=== PATIENT | female | born 1985 | race Caucasian/White ===

== ENCOUNTER 2017-08-08 07:15 | Inpatient (IN) | payer OTHER, MEDICAID ==
[2017-08-08 08:19] LABS: ADD MAN DIFF? NO
[2017-08-08] MEDS ORDERED: METHYLERGONOVINE 0.2 MG INJ IM (08:30)
[2017-08-08] MEDS ORDERED: SENNA/DOCUSATE NA (8.6MG/50MG) TAB PO (08:30)
[2017-08-08] MEDS ORDERED: OXYTOCIN 30 UNITS/LR 500 ML IV (08:30)
[2017-08-08] MEDS ORDERED: MISOPROSTOL 200 MCG TAB PR (08:30)
[2017-08-08] MEDS ORDERED: CARBOPROST 250 MCG INJ IM (08:30)
[2017-08-08] MEDS: OXYTOCIN 30 UNITS/LR 500 ML IV ×3 (08:38→13:27)
[2017-08-08 08:39] LABS: WHITE BLOOD COUNT 12.3 10^3/ul (4.8-10.8)
[2017-08-08 08:39] LABS: BASOPHILS % 0.3 % (0.0-2.0); EOSINOPHILS # 0.1 10^3/ul (0.0-0.5); EOSINOPHILS % 0.5 % (0.0-7.0); HEMATOCRIT 42.9 % (37.0-47.0); HEMOGLOBIN 14.9 g/dl (12.0-16.0); LYMPHOCYTES # 4.4 10^3/ul (0.8-2.9); LYMPHOCYTES % 35.9 % (15.0-51.0); MEAN CORPUSCULAR HGB CONC 34.7 g/dl (32.0-37.0); MEAN CORPUSCULAR VOLUME 89.4 fl (82.0-101.0); MEAN PLATELET VOLUME 11.3 fl (7.4-10.4); MONOCYTE # 0.8 10^3/ul (0.3-0.9); MONOCYTES % 6.8 % (0.0-11.0); NEUTROPHIL # 6.8 10^3/ul (1.6-7.5); NEUTROPHILS % 55.3 % (39.0-77.0); PLATELET COUNT 206 10^3/UL (140-415); RED CELL DISTRIBUTION WIDTH 15.2 % (11.5-14.5)
[2017-08-08] MEDS: LACTATED RINGER'S 1,000 ML IV ×2 (08:40→15:55)
[2017-08-08 08:46] LABS: INR 0.94; PARTIAL THROMBOPLASTIN TIME 25.5 Sec (25.0-35.0); PROTIME 12.7 Sec (11.9-14.9)
[2017-08-08] MEDS: LIDOCAINE 1% (MPF) 30 ML INJ INJ (09:22)
[2017-08-08 09:27] LABS: HEPATITIS B SURFACE ANTIGEN NEGATIVE (NEGATIVE)
[2017-08-08] MEDS: OXYCODONE/ASPIRIN (4.88/325) TAB PO (09:33)
[2017-08-08] MEDS: SENNA/DOCUSATE NA (8.6MG/50MG) TAB PO ×2 (13:20→22:04)
[2017-08-08] MEDS: WITCH HAZEL/GLYCERIN PAD PR (13:26)
[2017-08-08] MEDS: IBUPROFEN 600 MG TAB PO ×2 (13:26→17:42)
[2017-08-08] MEDS: LANOLIN 7 GM TUBE TOP (13:26)
[2017-08-09] MEDS: LACTATED RINGER'S 1,000 ML IV ×3 (00:11→16:11)
[2017-08-09] MEDS: IBUPROFEN 600 MG TAB PO ×5 (00:20→23:48)
[2017-08-09] MEDS: OXYCODONE/ASPIRIN (4.88/325) TAB PO ×3 (08:05→22:20)
[2017-08-09 08:12] LABS: ADD MAN DIFF? NO
[2017-08-09 08:15] LABS: WHITE BLOOD COUNT 9.6 10^3/ul (4.8-10.8)
[2017-08-09 08:15] LABS: BASOPHILS % 0.4 % (0.0-2.0); EOSINOPHILS # 0.1 10^3/ul (0.0-0.5); EOSINOPHILS % 1.3 % (0.0-7.0); HEMATOCRIT 35.8 % (37.0-47.0); HEMOGLOBIN 12.4 g/dl (12.0-16.0); LYMPHOCYTES % 20.6 % (15.0-51.0); MEAN CORPUSCULAR HEMOGLOBIN 31.1 pg (29.0-33.0); MEAN CORPUSCULAR HGB CONC 34.6 g/dl (32.0-37.0); MEAN CORPUSCULAR VOLUME 89.7 fl (82.0-101.0); MEAN PLATELET VOLUME 10.8 fl (7.4-10.4); MONOCYTE # 0.7 10^3/ul (0.3-0.9); NEUTROPHIL # 6.7 10^3/ul (1.6-7.5); NEUTROPHILS % 69.6 % (39.0-77.0); PLATELET COUNT 165 10^3/UL (140-415); RED BLOOD COUNT 3.99 10^6/ul (4.20-5.40)
[2017-08-09] MEDS: SENNA/DOCUSATE NA (8.6MG/50MG) TAB PO ×2 (08:22→21:00)
[2017-08-09] MEDS: metroNIDAZOLE 500 MG TAB PO ×2 (16:52→20:00)
[2017-08-09] MEDS: LANOLIN 7 GM TUBE TOP (23:48)
[2017-08-10] MEDS: LACTATED RINGER'S 1,000 ML IV ×3 (00:11→16:11)
[2017-08-10] MEDS: metroNIDAZOLE 500 MG TAB PO ×3 (03:45→12:00)
[2017-08-10] MEDS: IBUPROFEN 600 MG TAB PO ×2 (06:00→12:00)
[2017-08-10] MEDS: SENNA/DOCUSATE NA (8.6MG/50MG) TAB PO (09:00)
[2017-08-10] MEDS: DIPHTH/TET/ACEL PERTUSS (ADULT) 0.5 ML VIAL IM* (09:00)
[2017-08-10] MEDS ORDERED: MIDAZOLAM 1 MG/ML 2 ML INJ (16:17)
[2017-08-10] MEDS ORDERED: FENTAnyl 50 MCG/ML VIAL (16:17)
[2017-08-10] MEDS ORDERED: BUPIVACAINE 0.75%/DEXT (SPINAL) 2 ML INJ (16:17)
[2017-08-10] MEDS: BUPIVACAINE 0.25%/EPI (SDV) 30 ML INJ (16:43)
[2017-08-10] MEDS ORDERED: METOCLOPRAMIDE 10 MG INJ (16:53)
[2017-08-10] MEDS ORDERED: DEXAMETHASONE 4 MG/ML 1 ML INJ (16:53)
[2017-08-10] MEDS ORDERED: ONDANSETRON 4 MG INJ (16:53)
[2017-08-10] MEDS ORDERED: KETOROLAC 30 MG INJ (16:53)
[2017-08-10] MEDS ORDERED: morphine 2 MG INJ IV ×2 (17:30)
[2017-08-10] MEDS ORDERED: HYDROmorphONE 0.5 MG/0.5 ML SYG IV ×2 (17:30)
[2017-08-10] MEDS ORDERED: NALOXONE (0.4 MG/ML) INJ IV (17:30)
[2017-08-10] MEDS ORDERED: NALBUPHINE HCL (10 MG/1 ML) INJ IV (17:30)
[2017-08-10] MEDS ORDERED: DIPHENHYDRAMINE 50 MG INJ IV (17:30)
[2017-08-10] MEDS ORDERED: HYDROCODONE/APAP (5/325) TAB PO (17:30)
[2017-08-10] MEDS ORDERED: KETOROLAC 30 MG INJ IV ×2 (17:30→19:00)
[2017-08-10] MEDS ORDERED: ONDANSETRON 4 MG INJ IV (17:30)
[2017-08-10] MEDS ORDERED: ACETAMINOPHEN 500 MG TAB PO (17:30)
[2017-08-10] MEDS ORDERED: LACTATED RINGER'S 1,000 ML IV (17:34)
[2017-08-10] MEDS: KETOROLAC 30 MG INJ IM (18:15)
[2017-08-10] MEDS: KETOROLAC 60 MG INJ IM (18:16)
[2017-08-10] MEDS: BUTORPHANOL 2 MG INJ IM (18:45)
[2017-08-11] MEDS ORDERED: CEPHALEXIN 500 MG CAP PO
[2017-08-11] MEDS ORDERED: KETOROLAC 30 MG INJ IV
[2017-08-14] MEDS ORDERED: IBUPROFEN 600 MG TAB PO (06:00)
== END 2017-08-10 21:50 | disposition home or self-care (01) | DRG 767 ==
LOC: OBT 07:15 → L-D 07:16 → OBT 07:39 → L-D 07:39 → PP1 13:00
PROVIDERS: Obstetrics & Gynecology
PROC: 0UB70ZZ Excision of Bilateral Fallopian Tubes, Open Approach (ICD-10-PCS; 2017-08-10 16:00)
PROC: 10E0XZZ Delivery of Products of Conception, External Approach (ICD-10-PCS; principal; 2017-08-10 16:20)
DX: O70.0 First degree perineal laceration during delivery (principal); Z37.0 Single live birth; O69.81X0 Labor and delivery complicated by cord around neck, without compression, not applicable or unspecified; Z30.2 Encounter for sterilization; Z3A.38 38 weeks gestation of pregnancy
CPT/HCPCS: 85025; 85610; 85730; 87340; 88302